=== PATIENT | male | born 1970 | race Caucasian/White ===

== ENCOUNTER 2016-10-03 21:35 | Emergency (ER) | payer SELFPAY ==
[2016-10-03 21:55] VITALS: BP 141/93
[2016-10-03] MEDS ORDERED: Tetan/Diph/Pertus SYR(Tdap)* 0.5 ML SYR(BOOSTRIX) use SYR IM ONE (22:02)
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
[2016-10-03] MEDS ORDERED: HYDROcodone/ACETAMIN 5-325 MG* 1 TAB PO ONE (22:15)
[2016-10-03] MEDS ORDERED: Cephalexin CAP* 500 MG PO ONE (22:15)
--- NOTE | 2016-10-03 22:20 | RAD ---
HISTORY: Pain and swelling of left hand COMPARISONS: None VIEWS: 2, Frontal and lateral views of the left hand FINDINGS: BONE DENSITY: Normal. BONES: There is no displaced fracture. JOINTS: There is no arthropathy. ALIGNMENT: There is no dislocation. SOFT TISSUES: Unremarkable. OTHER FINDINGS: There is no radiopaque foreign body IMPRESSION: NO ACUTE OSSEOUS INJURY. NO RADIOPAQUE FOREIGN BODY. IF SYMPTOMS PERSIST, RECOMMEND REPEAT IMAGING.
== END 2016-10-03 22:25 | disposition left against medical advice (07) ==
LOC: UCEAST 21:35
DX: M79.642 Pain in left hand (principal); F17.210 Nicotine dependence, cigarettes, uncomplicated
CPT/HCPCS: 90471; 90715; 99213; A9270-GY; G0463

== ENCOUNTER 2016-10-03 22:53 | Emergency (ER) | payer SELFPAY ==
[2016-10-03 23:00] VITALS: BP 138/84
== END 2016-10-03 23:45 | disposition home or self-care (01) ==
LOC: ED 22:53
DX: Z53.21 Procedure and treatment not carried out due to patient leaving prior to being seen by health care provider (principal)

== ENCOUNTER 2017-04-03 07:34 | Emergency (ER) | payer OTHER ==
[2017-04-03 07:58] VITALS: BP 143/90
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
[2017-04-03] MEDS ORDERED: oxyCODONE/Acetamin 5/325 MG* TAB PO ONE (08:23)
[2017-04-03] MEDS ORDERED: HYDROcodone/ACETAMIN 5-325 MG* 1 TAB PO ONE (08:28)
--- NOTE | 2017-04-03 09:07 | RAD ---
INDICATION: Report of rib fracture or ongoing left-sided chest pain. COMPARISON: There are no prior studies available for comparison. TECHNIQUE: Dual-energy PA and lateral views of the chest were obtained. FINDINGS: The heart is within normal limits in size. Mediastinal and hilar contours appear within normal limits. The lungs are underinflated. There are linear densities at the left lung base most consistent with subsegmental atelectasis. No pleural effusion or pneumothorax is seen. There are fractures of the left lateral seventh, eighth and ninth ribs which appears slightly displaced. IMPRESSION: FRACTURES OF THE LEFT LATERAL SEVENTH, EIGHTH AND NINTH RIBS, NO PNEUMOTHORAX IS SEEN.
[2017-04-03] MEDS ORDERED: Ketorolac INJ* 30 MG/ML 1 ML VIAL IM ONE (09:09)
== END 2017-04-03 09:24 | disposition home or self-care (01) ==
LOC: UCEAST 07:34
DX: S22.32XA Fracture of one rib, left side, initial encounter for closed fracture (principal); V49.60XA Unspecified car occupant injured in collision with unspecified motor vehicles in traffic accident, initial encounter
CPT/HCPCS: 71020; 96372; 99212; A9270-GY; G0463; J1885

== ENCOUNTER 2017-05-12 07:43 | Emergency (ER) | payer SELFPAY ==
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
[2017-05-12] MEDS ORDERED: HYDROcodone/ACETAMIN 5-325 MG* 1 TAB PO ONE (08:27)
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
[2017-05-12 10:05] VITALS: BP 118/87
== END 2017-05-12 10:15 | disposition home or self-care (01) ==
LOC: UCEAST 07:43
DX: S00.532A Contusion of oral cavity, initial encounter (principal); H53.451 Other localized visual field defect, right eye; S00.85XA Superficial foreign body of other part of head, initial encounter; J01.30 Acute sphenoidal sinusitis, unspecified; R60.9 Edema, unspecified; W22.8XXA Striking against or struck by other objects, initial encounter; Y92.9 Unspecified place or not applicable; F17.210 Nicotine dependence, cigarettes, uncomplicated
CPT/HCPCS: 70480; 99213; G0463

== ENCOUNTER 2017-10-01 18:19 | Emergency (ER) | payer SELFPAY ==
[2017-10-01 18:55] VITALS: BP 125/95
[2017-10-01] MEDS ORDERED: Ibuprofen TAB* 600 MG PO ONE (19:07)
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
== END 2017-10-01 20:00 | disposition home or self-care (01) ==
LOC: UCCORT 18:19
DX: S81.852A Open bite, left lower leg, initial encounter (principal); W54.0XXA Bitten by dog, initial encounter; Y92.9 Unspecified place or not applicable; F17.210 Nicotine dependence, cigarettes, uncomplicated
CPT/HCPCS: 99212; A9270-GY; G0463

== ENCOUNTER 2019-08-19 11:24 | Emergency (ER) | payer SELFPAY ==
[2019-08-19 11:57] VITALS: BP 138/92
[2019-08-19] MEDS ORDERED: Ibuprofen TAB* 600 MG PO ONE (12:05)
[2019-08-19] MEDS ORDERED: Amoxicillin PO (*) 500 MG CAP PO ONE (12:05)
--- NOTE | 2019-08-19 12:06 | UC ---
Dental HPI - HPI Summary HPI Summary: 48-year-old male comes in with a chief complaint of right lower dental infection. Patient has dental decay in the right lower molars and last couple of days he started having pain now is having swelling. No fevers hurts more when he chews. - History of Current Complaint Chief Complaint: UCDentalProblem Stated Complaint: TOOTH COMP Time Seen by Provider: 08/19/19 11:58 Pain Intensity: 9 - Allergies/Home Medications Allergies/Adverse Reactions: Allergies Allergy/AdvReac Type Severity Reaction Status Date / Time No Known Allergies Allergy Verified 08/19/19 11:57 Home Medications: Home Medications Amoxicillin PO (*) [Amoxicillin 500 MG CAP*] 500 mg PO TID #30 cap 08/19/19 [Rx] PMH/Surg Hx/FS Hx/Imm Hx Previously Healthy: Yes Other History Of: Negative For: HIV, Hepatitis B, Hepatitis C, Anticoagulant Therapy - Surgical History Surgical History: Yes Surgery Procedure, Year, and Place: "Relieve Pressure within My Head" d/t Closed Head, 2012, [place] - Family History Known Family History: Positive: Cardiac Disease Negative: Hypertension, Diabetes - Social History Alcohol Use: Rare Substance Use Type: None Smoking Status (MU): Heavy Every Day Tobacco Smoker Type: Cigarettes Amount Used/How Often: 2 PPD Length of Time of Smoking/Using Tobacco: Since Age 17 Household Exposure Type: Cigarettes - Immunization History Most Recent Influenza Vaccination: NOT UTD Most Recent Tetanus Shot: 10/03/16 Review of Systems All Other Systems Reviewed And Are Negative: Yes Constitutional: Positive: Other - SEE HPI Skin: Positive: Negative Eyes: Positive: Negative ENT: Positive: Dental Pain Respiratory: Positive: Negative Cardiovascular: Positive: Negative Gastrointestinal: Positive: Negative Motor: Positive: Negative Neurovascular: Positive: Negative Musculoskeletal: Positive: Negative Neurological/Mental Status: Positive: Negative Psychological: Positive: Negative Is Patient Immunocompromised?: No Physical Exam Triage Information Reviewed: Yes Appearance: Well-Appearing, No Pain Distress - MILD, Well-Nourished Vital Signs: Initial Vital Signs Temp 98.1 F 08/19/19 11:49 Pulse 80 08/19/19 11:49 Resp 16 08/19/19 11:49 BP 138/92 08/19/19 11:49 Pulse Ox 100 08/19/19 11:49 Vital Signs Reviewed: Yes Eye Exam: Normal Eyes: Positive: Conjunctiva Clear ENT: Positive: Pharynx normal, Uvula midline Dental: Positive: Gross Decay/Caries @ - Right lower molars with swelling in to the right cheek Neck: Positive: Supple Respiratory: Positive: No respiratory distress Musculoskeletal: Positive: Strength Intact, ROM Intact Neurological: Positive: Alert, Muscle Tone Normal Psychological: Positive: Age Appropriate Behavior Skin Exam: Normal Dental Complaint Course/Dx - Differential Dx/Diagnosis Provider Diagnosis: Dental abscess Discharge ED - Sign-Out/Discharge Documenting (check all that apply): Patient Departure All imaging exams completed and their final reports reviewed: No Studies - Discharge Plan Condition: Stable Disposition: HOME Prescriptions: Amoxicillin PO (*) [Amoxicillin 500 MG CAP*] 500 mg PO TID #30 cap Patient Education Materials: Dental Abscess (ED) Forms: *Work Release Referrals: [facility] [Outside] Additional Instructions: FOLLOW UP WITH YOUR DENTIST. GET REEVALUATED IF NOT IMPROVING OR WORSE OR ANY QUESTIONS OR CONCERNS. - Billing Disposition and Condition Condition: STABLE Disposition: Home
== END 2019-08-19 12:16 | disposition home or self-care (01) ==
LOC: UCCORT 11:24
DX: K04.7 Periapical abscess without sinus (principal); F17.210 Nicotine dependence, cigarettes, uncomplicated
CPT/HCPCS: 99212; A9270-GY; G0463